=== PATIENT | male | born 1965 | race Caucasian/White ===

== ENCOUNTER → 2023-07-20 21:00 | Outpatient (REF) | payer OTHER, SELFPAY | LOC: DHSLP 21:00 | PROVIDERS: ATTENDING PHYSICIAN Physician Assistant; FAMILY PHYSICIAN Family Medicine | DX: G47.33 Obstructive sleep apnea (adult) (pediatric) (principal) | CPT/HCPCS: 95811 ==

== ENCOUNTER 2024-11-29 20:15 | Emergency (ER) | payer OTHER, SELFPAY ==
[2024-11-29 20:20] VITALS: BP 139/84
--- NOTE | 2024-11-29 20:53 | ED.MUSCINJ ---
HPI-Injury
General
Chief Complaint: Musculo-Skeletal Complaint
Source: patient
Exam Limitations: none
Time Seen by Provider: 11/29/24 20:51
Nursing documentation reviewed up to this point in time: agreed with
History of Present Illness-Injury
Initial Injury comments:
59-year-old male with history of HTN, HLD, psoriasis presents with pain right hip/buttock area, painful rash right 2nd toe. Reports tripping on a set of steps at a ball game on Tuesday, without a direct fall, he caught himself from falling but did
lurch forward. He did not experience immediate pain but began to notice discomfort in the right thigh the following day (Tuesday). The pain has been progressively worsening, spreading down the inner thigh to the back of the knee. The patient
describes it as bad pain, interfering with sleep for four consecutive nights and causing difficulty in finding a comfortable position, regardless of lying on the right or left side.
Additionally, the patient noted severe pain in the right second toe, beginning around Tuesday or Tuesday, which has made bending the toe excruciating.
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 He states Ibuprofen helps.
He saw PCP associate Dr. Ibrahim who prescribed steroid taper and Cyclobenzaprine which he started today
Past History
Past History
ED Past Medical History: HTN, Hypercholesterolemia, Psychiatric (panic attacks-Xanax prn) and Other (renal calc)
ED Past Surgical History: Negative Cardiac
Patient has exhibited threatening behavior?: No
PSI?: No
Social History
Tobacco: Non-smoker
Alcohol: Occasional
Drug: None
Personal:
Living: with family
Employment: Employed
Family History
Family History: Negative Diabetes
Review of Systems
Review of Systems
Allergies reviewed?: Yes
All Other Systems: ROS reviewed and negative except as documented in HPI and ROS
Phy Exam
Physical Exam
Physical Exam:
GENERAL: No acute distress. A&Ox3.
CONSTITUTIONAL: Afebrile.
EYES: clear, conjunctivae normal
RESPIRATORY: Regular respirations, nonlabored, lungs clear.
CARDIOVASCULAR: Regular rate and rhythm, no murmurs, no rubs.
GI: Soft, nontender, normal BS
MUSCULOSKELETAL: No spinal bony tenderness. Tender to palpate over right ischial tuberosity and lateral hip areas. Palpation over this area immediately reproduces his symptoms. Pelvic rock negative. No other bony tenderness to the LLE, full ROM
with pain elicited with raising leg to 90 degrees, no pain with abduction or adduction of leg with knee flexed. Moves with ease. Well perfused.
SKIN: Warm, dry, pink. Two excoriated lesions 5 mm diameter in the space between 2nd and 3rd toes, tiny red satellite lesions about the dorsum of the 2nd toe. No bony tenderness, exquisite pain with flexion of the toe.
PSYCH: Normal mood and affect. Well kept, interactive and appropriate
NEUROLOGIC: Awake, alert and oriented. No focal neurological deficits
Injury Course
Orders/Labs/Results
Orders:
Orders
11/29/24 21:47
Valacyclovir HCl [Valtrex] 1,000 mg PO NOW STA
MDM/Problems Addressed
Differential Diagnosis Includes:
Muscle strain, hamstring muscle strain, greater trochanteric bursitis, ischiogluteal bursitis
Toe rash: fungal infection, herpes zoster
MDM/Problems Addressed:
59-year-old male with history of HTN, HLD, psoriasis presents with pain right hip/buttock area, painful rash right 2nd toe. Reports tripping on a set of steps at a ball game on Tuesday, without a direct fall, he caught himself from falling but did
lurch forward. He did not experience immediate pain but began to notice discomfort in the right thigh the following day (Tuesday). The pain has been progressively worsening, spreading down the inner thigh to the back of the knee. The patient
describes it as bad pain, interfering with sleep for four consecutive nights and causing difficulty in finding a comfortable position, regardless of lying on the right or left side.
Additionally, the patient noted severe pain in the right second toe, beginning around Tuesday or Tuesday, which has made bending the toe excruciating.
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 He states Ibuprofen helps.
He saw PCP associate Dr. Ibrahim who prescribed steroid taper and Cyclobenzaprine which he started today.
Plan:
1. Continue ibuprofen as prescribed for pain management. Continue the steroid taper
2. Apply ice to the affected area of right hip, ischial area after a busy day to reduce swelling and inflammation.
3. Keep the foot elevated, especially when resting.
4. A careful regimen of washing and drying between the toes, possibly using a blow dryer, to manage possible fungal infection, continue antifungal spray.
5. Prescription of an antiviral medication due to concerns about shingles in the interdigital space and 2nd toe
6. Rest and avoid excessive movement to promote healing.
7. Monitor the condition for signs of infection such as increasing redness, swelling, or fever.
Pt OOB and standing relieves his pain. Ibuprofen helps
Describes R 2nd toe pain as 'excruciating' at times. No bony tenderness, no imaging indicated. Painful rash may be zoster, interdigital lesions may be fungal. Will treat for both. Pt has started applying antifungal spray
F/U w PCP
*Pulse Oximetry
SaO2: 96
Oxygen Mode of Delivery: Room air
Patient hypoxic: not evaluated
*Critical Care Note
Total Time (30-74mins, 75-104mins- exclusive of procedures): Not Applicable
ED Attending Note
-
Portions of this chart may have been created with voice recognition software.� Occasional wrong word or��sound alike� substitutions may have occurred due to the inherent limitations of voice recognition software.
Discharge Plan
Departure
Patient Disposition: Home (Routine Discharge)
Date of Disposition: 11/29/24
Time of Disposition: 21:38
Patient with high blood pressure during this ER visit?: No
Condition: Good
Discharge Problem:
Acute right hip pain, rash and pain right 2nd toe
Instructions: Ischiogluteal Bursitis Exercises, Shingles
Prescriptions:
New
valacyclovir [Valtrex] 1 gram tablet
1,000 mg PO BID Qty: 19 0RF
ibuprofen 600 mg tablet
600 mg PO Q6H PRN (Reason: Pain) Qty: 30 0RF
No Action
candesartan 32 mg Tablet
32 mg PO DAILY
rosuvastatin [Crestor] 20 mg Tablet
hydrochlorothiazide 12.5 mg Tablet
12.5 mg PO DAILY
Tremfya 100 mg/mL Syringe
100 mg SC Q8W
Referrals:
Orlin Jordan MD [Family Provider, Family Practice] - As needed
Activity Restrictions/Additional Instructions:
As we discussed, I believe you have ischiogluteal bursitis. Continue the steroid taper
You may use ibuprofen 600 mg up to 3 times a day in an 8-hour period as needed for pain, along with the steroid
Use the cyclobenzaprine as needed for muscle relaxation, it can make you sleepy and slow the reflexes so do not drive or operate any machinery within 8 hours of taking it.
After a long day on your feet apply cold compresses to the hip/buttock area 20 minutes off and on
Otherwise warm moist compresses or hot soak in the tub or allowing the warm shower water to run over the area to bring fresh blood to the area to heal.
I sent a prescription to your pharmacy for an antiviral, assuming the rash and pain on your toe is from shingles.
Keep the toe and area between the toes clean daily, wear clean white socks, dry the area between the toes well, use a blow dryer if needed.
If you note increasing redness, swelling, pain, red streak up the foot, or fever, these could all indicate infection and you should seek medical care immediately as you may need an antibiotic
REST over the weekend
Interventions
Interventions:
*Risk Screen - Suicide Last Done: 11/29/24 20:16
*General Assessment Last Done: 11/29/24 21:58
*Neglect/Abuse Screening Last Done: 11/29/24 20:16
*ED- Fall Risk Assessment Last Done: 11/29/24 21:58
*ED COVID-19 Vaccine History Last Done: 11/29/24 21:58
*Nursing Disposition Last Done: 11/29/24 21:59
ED-Musculoskeletal Assessment Last Done: 11/29/24 21:58
Discharge Date and Time
Discharge Date/Time: 11/29/24 21:59
Print Language: LATVIAN
[2024-11-29] MEDS: VALTREX 1000 MG PO (21:52)
== END 2024-11-29 21:59 | disposition home or self-care (01) ==
LOC: EMR 20:15
PROVIDERS: EMERGENCY PHYSICIAN Emergency Medicine; FAMILY PHYSICIAN Family Medicine
DX: M25.551 Pain in right hip (principal); R21 Rash and other nonspecific skin eruption; M79.674 Pain in right toe(s); I10 Essential (primary) hypertension; E78.00 Pure hypercholesterolemia, unspecified; L40.9 Psoriasis, unspecified; F41.0 Panic disorder [episodic paroxysmal anxiety]; W01.0XXA Fall on same level from slipping, tripping and stumbling without subsequent striking against object, initial encounter
CPT/HCPCS: 99283